=== PATIENT | male | born 1985 | race African-American/Black ===

== ENCOUNTER 2016-08-27 16:42 | Emergency (ER) | payer SELFPAY ==
[~2016-08-27 16:42] MED LIST: HYDROmorphone HCL 2 MG/ML VL ONE; ONDANSETRON HCL 4 MG/2 ML VIAL ONE; TETANUS-DIPTH-ACEL PERTUSSIS 0.5ML SYRG IM ONE; cefTRIAXone 1GM/50ML D5W 50 ML IV ONE
[2016-08-27] MEDS ORDERED: TETANUS-DIPTH-ACEL PERTUSSIS 0.5ML SYRG IM ONE (17:00)
[2016-08-27] MEDS ORDERED: LACTATED RINGER'S 1,000 ML IV ONE (17:00)
[2016-08-27] MEDS ORDERED: HYDROmorphone HCL 2 MG/ML VL IV ONE (17:00)
[2016-08-27] MEDS ORDERED: ONDANSETRON HCL 4 MG/2 ML VIAL IV ONE (17:00)
[2016-08-27] MEDS ORDERED: cefTRIAXone 1GM/50ML D5W 50 ML IV ONE (17:00)
[2016-08-27 17:18] VITALS: BP 151/108
[2016-08-27 17:30] LABS: Albumin 3.9 g/dL (3.4-5.0); Anion Gap 20 (5-15); Aspartate Aminotransferase 16 U/L (15-37); BUN/Creatinine Ratio 8.7; Blood Urea Nitrogen 12 mg/dL (7-18); Calcium 8.3 mg/dL (8.5-10.1); Carbon Dioxide 15 mmol/L (21-32); Chloride 108 mmol/L (98-107); GFR African American 76 mL/min; GFR Non-African American 63 mL/min; Glucose 130 mg/dL (74-106); Potassium 3.3 mmol/L (3.5-5.1); Sodium 143 mmol/L (136-145)
[2016-08-27 17:35] LABS: Alkaline Phosphatase 85 U/L (45-117); Bilirubin, Total 0.2 mg/dL (0.2-1.0); Prothrombin Time 10.8 sec (9.37-12.3); Total Protein 7.8 g/dL (6.4-8.2)
[2016-08-27 17:47] LABS: Basophils # (auto) 0.1 uL; Basophils % (auto) 0.5 % (0.0-2.0); Eosinophils # (auto) 0.4 uL; Eosinophils % (auto) 3.1 % (0.0-7.0); Hematocrit 41.8 % (41.0-53.0); Hemoglobin 13.6 g/dL (13.5-17.5); Lymphocytes # (auto) 5.2 uL; Mean Corpuscular Hemoglobin 27.5 pg (28.0-32.0); Mean Corpuscular Hgb Conc. 32.4 g/dL (32.0-36.0); Mean Corpuscular Volume 84.8 fL (80.0-100.0); Mean Platelet Volume 9.9 fL (7.4-10.4); Monocytes # (auto) 1.3 uL; Monocytes % (auto) 10.1 % (0.0-12.0); Neutrophils # (auto) 6.3 uL; Neutrophils % (auto) 47.3 % (37.0-80.0); Platelet Count (auto) 264 10^3/uL (140-450); Red Cell Distribution Width 15.3 % (11.6-16.0); White Blood Cell 13.4 10^3/uL (4.4-10.8)
[2016-08-27 18:32] LABS: B-Type Natriuretic Peptide 22.83 pg/mL (0-100)
[2016-08-27 18:45] LABS: Temperature: 22.9 C (20.0-25.0)
== END 2016-08-27 18:55 | disposition short-term general hospital (02) ==
LOC: EEVIPCON 16:45 → ER 16:45
DX: S81.001A Unspecified open wound, right knee, initial encounter (principal); W34.00XA Accidental discharge from unspecified firearms or gun, initial encounter; Y93.89 Activity, other specified; Y99.8 Other external cause status; Y92.89 Other specified places as the place of occurrence of the external cause
CPT/HCPCS: 36415; 71010; 73552; 80053; 83880; 84484; 85025; 85610; 85730; 86850; 86900; 86901; 90471; 90715; 96365; 96375; 99285; J0696; J1170; J2405